=== PATIENT | female | born 1990 | race African-American/Black ===

== ENCOUNTER 2016-08-21 04:34 | Emergency (ER) | payer MEDICAID ==
[~2016-08-21] VITALS: Ht 167.6 cm; Wt 100.0 kg
[2016-08-21] MEDS ORDERED: ALBUTEROL (0.083%) 2.5MG/3ML NEB HHN STA (04:38)
[2016-08-21] MEDS ORDERED: IPRATROPIUM BROMIDE (0.02%) 0.5MG/2.5ML NEB HHN STA (04:38)
[2016-08-21] MEDS ORDERED: LORAZEPAM 2MG/ML CPJ IV ONE (04:45)
[2016-08-21 06:32] VITALS: BP 125/65
== END 2016-08-21 06:33 | disposition home or self-care (01) ==
LOC: ER 04:34
DX: J98.01 Acute bronchospasm (principal); J06.9 Acute upper respiratory infection, unspecified; F41.9 Anxiety disorder, unspecified; Z88.1 Allergy status to other antibiotic agents; Z88.2 Allergy status to sulfonamides
CPT/HCPCS: 71010; 94640; 96374; 99284; J2060; J7611; Z7610

== ENCOUNTER 2016-11-15 20:42 | Emergency (ER) | payer MEDICAID | END 2016-11-15 22:44 | disposition left against medical advice (07) | LOC: ER 22:14 | DX: R10.9 Unspecified abdominal pain (principal); Z53.21 Procedure and treatment not carried out due to patient leaving prior to being seen by health care provider ==

== ENCOUNTER 2016-11-15 22:44 | Emergency (ER) | payer MEDICAID ==
[~2016-11-15] VITALS: Ht 175.3 cm; Wt 125.0 kg
[2016-11-16 00:51] LABS: CLARITY URINE CLOUDY (CLEAR); COLOR URINE DARK YELLOW (YELLOW); GLUCOSE URINE NEGATIVE (NEGATIVE); KETONES URINE NEGATIVE (NEGATIVE); LEUKOCYTE ESTERASE URINE 1+ (NEGATIVE); NITRITE URINE NEGATIVE (NEGATIVE); OCCULT BLOOD URINE NEGATIVE (NEGATIVE); PROTEIN URINE NEGATIVE (NEGATIVE); SPECIFIC GRAVITY URINE 1.032 (1.005-1.030)
[2016-11-16 00:59] LABS: BASOPHILS % 0.4 % (0.0-2.0); EOSINOPHILS % 1.3 % (0.0-5.0); HEMATOCRIT. 33.2 % (36.0-48.0); HEMOGLOBIN. 10.5 g/dL (12.0-16.0); LYMPHOCYTES % 25.8 % (20.0-50.0); MEAN CORPUSCULAR HEMOGLOBIN 24.5 pg (28.0-32.0); MEAN CORPUSCULAR VOLUME 77.7 fL (81.0-99.0); MEAN PLATELET VOLUME 8.1 fl (7.4-10.4); MONOCYTES % 5.6 % (2.0-8.0); NEUTROPHILS % 66.9 % (40.0-76.0); PLATELET 312 x1000/uL (130-400); RED BLOOD CELL COUNT 4.27 mill/uL (4.2-5.4); RED CELL DISTRIBUTION WIDTH 15.3 % (11.6-14.6)
[2016-11-16] MEDS ORDERED: LIDOCAINE HCL 1% 20ML VIAL (Pyxis) INJ INFIL NR (03:45)
[2016-11-16] MEDS ORDERED: CEFTRIAXONE SODIUM 250 MG/VIAL IM NR (03:45)
[2016-11-16] MEDS ORDERED: AZITHROMYCIN 500 MG TABLET PO NR (04:45)
[2016-11-16 05:18] VITALS: BP 132/88
== END 2016-11-16 05:44 | disposition home or self-care (01) ==
LOC: ER 23:57
DX: N39.0 Urinary tract infection, site not specified (principal); N89.8 Other specified noninflammatory disorders of vagina; N83.00 Follicular cyst of ovary, unspecified side; Z88.2 Allergy status to sulfonamides; Z88.1 Allergy status to other antibiotic agents
CPT/HCPCS: 36415; 76830; 76856; 81001; 81025; 85025; 87210; 96372; 99285; J0696; J3490

== ENCOUNTER 2018-06-24 23:13 | Emergency (ER) | payer MEDICARE ==
[~2018-06-24] VITALS: Ht 172.7 cm; Wt 124.2 kg
[2018-06-25] MEDS ORDERED: ACETAMINOPHEN 325MG TABLET PO ONE (04:00)
[2018-06-25 04:05] LABS: CLARITY URINE CLEAR (CLEAR); COLOR URINE YELLOW (YELLOW); KETONES URINE TRACE (NEGATIVE); LEUKOCYTE ESTERASE URINE NEGATIVE (NEGATIVE); NITRITE URINE NEGATIVE (NEGATIVE); OCCULT BLOOD URINE NEGATIVE (NEGATIVE); PROTEIN URINE NEGATIVE (NEGATIVE); SPECIFIC GRAVITY URINE 1.039 (1.005-1.030)
[2018-06-25 04:08] LABS: BASOPHILS % 0.3 % (0.0-2.0); EOSINOPHILS % 2.1 % (0.0-5.0); HEMATOCRIT. 31.4 % (36.0-48.0); HEMOGLOBIN. 9.9 g/dL (12.0-16.0); LYMPHOCYTES % 26.8 % (20.0-50.0); MEAN CORPUSCULAR HEMOGLOBIN 24.7 pg (28.0-32.0); MEAN PLATELET VOLUME 8.1 fl (7.4-10.4); MONOCYTES % 5.3 % (2.0-8.0); NEUTROPHILS % 65.5 % (40.0-76.0); PLATELET 328 x1000/uL (130-400); RED BLOOD CELL COUNT 4.03 mill/uL (4.2-5.4); RED CELL DISTRIBUTION WIDTH 16.1 % (11.6-14.6)
[2018-06-25 04:09] LABS: PROTHROMBIN TIME 10.2 sec (9.1-11.1)
[2018-06-25 04:11] LABS: CHLORIDE 109 mEq/L (98-107)
[2018-06-25 04:24] LABS: B-HCG QUANTITATIVE < 1 mIU/mL (<3)
[2018-06-25 05:58] VITALS: BP 116/65
== END 2018-06-25 06:12 | disposition home or self-care (01) ==
LOC: ER 23:13
DX: R10.30 Lower abdominal pain, unspecified (principal); Z88.2 Allergy status to sulfonamides
CPT/HCPCS: 36415; 76830; 76856; 81025; 84702; 86850; 86900; 99284

== ENCOUNTER 2018-07-14 16:28 | Emergency (ER) | payer MEDICARE ==
[~2018-07-14] VITALS: Ht 175.3 cm; Wt 118.0 kg
[2018-07-14] MEDS ORDERED: SODIUM CHLORIDE 0.9% 1,000 ML IV ONE (23:31)
[2018-07-15 00:07] LABS: BASOPHILS % 0.2 % (0.0-2.0); CLARITY URINE TURBID (CLEAR); EOSINOPHILS % 2.8 % (0.0-5.0); HEMATOCRIT. 30.5 % (36.0-48.0); HEMOGLOBIN. 9.7 g/dL (12.0-16.0); KETONES URINE TRACE (NEGATIVE); LEUKOCYTE ESTERASE URINE 1+ (NEGATIVE); MEAN CORPUSCULAR HEMOGLOBIN 24.7 pg (28.0-32.0); MEAN CORPUSCULAR VOLUME 77.6 fL (81.0-99.0); NITRITE URINE NEGATIVE (NEGATIVE); OCCULT BLOOD URINE 3+ (NEGATIVE); PH URINE 5.5 (4.5-8.0); PLATELET 383 x1000/uL (130-400); PROTEIN URINE 2+ (NEGATIVE); RED BLOOD CELL COUNT 3.92 mill/uL (4.2-5.4); RED CELL DISTRIBUTION WIDTH 15.4 % (11.6-14.6); SPECIFIC GRAVITY URINE 1.036 (1.005-1.030)
[2018-07-15 00:08] LABS: COLOR URINE BROWN (YELLOW)
[2018-07-15 00:12] LABS: CHLORIDE 108 mEq/L (98-107)
[2018-07-15 00:13] LABS: HCG SCREEN NEGATIVE
[2018-07-15] MEDS ORDERED: HYDROCODONE/ACETAMINOPHEN 5/325MG TABLET PO NR (01:30)
[2018-07-15 03:16] VITALS: BP 120/79
== END 2018-07-15 03:26 | disposition home or self-care (01) ==
LOC: ER 16:28
DX: N93.9 Abnormal uterine and vaginal bleeding, unspecified (principal); D64.9 Anemia, unspecified; Z90.49 Acquired absence of other specified parts of digestive tract; F17.210 Nicotine dependence, cigarettes, uncomplicated; Z88.3 Allergy status to other anti-infective agents; Z88.2 Allergy status to sulfonamides; Z98.890 Other specified postprocedural states
CPT/HCPCS: 36415; 80048; 81003; 84703; 85025; 99283; J7030

== ENCOUNTER 2019-02-17 06:02 | Emergency (ER) | payer MEDICARE ==
[~2019-02-17] VITALS: Ht 172.7 cm; Wt 126.5 kg
[2019-02-17] MEDS ORDERED: MORPHINE SULFATE 4 MG/ML CPJ (NOT FOR IM USE) IV ONE (07:00)
[2019-02-17 08:18] LABS: CHLORIDE 110 mEq/L (98-107)
[2019-02-17 08:29] LABS: B-HCG QUANTITATIVE < 1 mIU/mL (<3)
[2019-02-17 08:34] LABS: BASOPHILS % 0.2 % (0.0-2.0); EOSINOPHILS % 1.4 % (0.0-5.0); HEMATOCRIT. 32.2 % (36.0-48.0); HEMOGLOBIN. 10.3 g/dL (12.0-16.0); LYMPHOCYTES % 16.7 % (20.0-50.0); MEAN CORPUSCULAR HEMOGLOBIN 23.2 pg (28.0-32.0); MEAN CORPUSCULAR VOLUME 72.6 fL (81.0-99.0); MEAN PLATELET VOLUME 7.9 fl (7.4-10.4); MONOCYTES % 5.4 % (2.0-8.0); NEUTROPHILS % 76.3 % (40.0-76.0); PLATELET 340 x1000/uL (130-400); RED BLOOD CELL COUNT 4.44 mill/uL (4.2-5.4); RED CELL DISTRIBUTION WIDTH 18.6 % (11.6-14.6)
[2019-02-17 09:04] LABS: CLARITY URINE CLOUDY (CLEAR); COLOR URINE YELLOW (YELLOW); KETONES URINE TRACE (NEGATIVE); LEUKOCYTE ESTERASE URINE 2+ (NEGATIVE); NITRITE URINE NEGATIVE (NEGATIVE); OCCULT BLOOD URINE TRACE (NEGATIVE); PH URINE 5.5 (4.5-8.0); PROTEIN URINE 1+ (NEGATIVE); SPECIFIC GRAVITY URINE 1.031 (1.005-1.030)
[2019-02-17] MEDS ORDERED: KETOROLAC 30MG/ML VIAL IV ONE (09:30)
[2019-02-17] MEDS ORDERED: AZITHROMYCIN 500 MG TABLET PO ONE (09:45)
[2019-02-17] MEDS ORDERED: CEFTRIAXONE SODIUM 250 MG/VIAL IM ONE (09:45)
[2019-02-17] MEDS ORDERED: ACETAMINOPHEN 325MG TABLET PO ONE (11:45)
[2019-02-17 12:22] VITALS: BP 130/80
[2019-02-19 07:12] LABS: CHLAMYDIA TRACHOMATIS NAA Negative (Negative); NEISSERIA GONORRHOEAE NAA Negative (Negative)
== END 2019-02-17 12:27 | disposition home or self-care (01) ==
LOC: ER 06:02
DX: N39.0 Urinary tract infection, site not specified (principal); R10.2 Pelvic and perineal pain; F17.210 Nicotine dependence, cigarettes, uncomplicated; Z90.49 Acquired absence of other specified parts of digestive tract; Z88.2 Allergy status to sulfonamides; Z88.3 Allergy status to other anti-infective agents
CPT/HCPCS: 36415; 74176; 76830; 76856; 80053; 81003; 81025; 84702; 85025; 86850; 86900; 86901; 87086; 87210; 87491; 87591; 96372; 96374; 96375; 99284; J0696; J1885; J2270

== ENCOUNTER 2019-06-16 23:12 | Emergency (ER) | payer MEDICARE ==
[~2019-06-16] VITALS: Ht 175.3 cm; Wt 127.0 kg
[2019-06-17 00:13] VITALS: BP 133/74
[2019-06-17 03:35] LABS: BASOPHILS % 0.8 % (0.0-2.0); EOSINOPHILS % 1.7 % (0.0-5.0); HEMATOCRIT. 33.9 % (36.0-48.0); HEMOGLOBIN. 10.8 g/dL (12.0-16.0); MEAN CORPUSCULAR HEMOGLOBIN 23.8 pg (28.0-32.0); MEAN CORPUSCULAR VOLUME 74.8 fL (81.0-99.0); MEAN PLATELET VOLUME 7.9 fl (7.4-10.4); MONOCYTES % 5.3 % (2.0-8.0); NEUTROPHILS % 63.2 % (40.0-76.0); PLATELET 341 x1000/uL (130-400); RED BLOOD CELL COUNT 4.54 mill/uL (4.2-5.4); RED CELL DISTRIBUTION WIDTH 17.6 % (11.6-14.6)
[2019-06-17 03:40] LABS: CHLORIDE 106 mEq/L (98-107)
[2019-06-17 03:44] LABS: CLARITY URINE CLOUDY (CLEAR); COLOR URINE YELLOW (YELLOW); KETONES URINE TRACE (NEGATIVE); LEUKOCYTE ESTERASE URINE 1+ (NEGATIVE); NITRITE URINE NEGATIVE (NEGATIVE); OCCULT BLOOD URINE NEGATIVE (NEGATIVE); PH URINE 5.5 (4.5-8.0); PROTEIN URINE NEGATIVE (NEGATIVE); SPECIFIC GRAVITY URINE 1.035 (1.005-1.030); UROBILINOGEN URINE 0.2 E.U./dL (0.2-1.0)
[2019-06-17 04:40] LABS: B-HCG QUANTITATIVE 8062 mIU/mL (<3)
== END 2019-06-17 05:24 | disposition home or self-care (01) ==
LOC: ER 23:12
DX: O20.0 Threatened abortion (principal); O23.31 Infections of other parts of urinary tract in pregnancy, first trimester; Z3A.01 Less than 8 weeks gestation of pregnancy; F17.290 Nicotine dependence, other tobacco product, uncomplicated; Z88.2 Allergy status to sulfonamides
CPT/HCPCS: 36415; 76830; 76856; 80053; 81003; 81025; 84702; 85025; 99284

== ENCOUNTER 2019-09-09 13:01 | Emergency (ER) | payer SELFPAY ==
[~2019-09-09] VITALS: Ht 160 cm; Wt 127.7 kg
[2019-09-09] MEDS ORDERED: SODIUM CHLORIDE 0.9% 1,000 ML IV ONE (14:21)
[2019-09-09] MEDS ORDERED: ONDANSETRON HCL 4MG/2ML INJ IV ONE (14:30)
[2019-09-09 15:10] LABS: BASOPHILS % 0.4 % (0.0-2.0); EOSINOPHILS % 0.6 % (0.0-5.0); HEMATOCRIT. 36.5 % (36.0-48.0); HEMOGLOBIN. 11.9 g/dL (12.0-16.0); LYMPHOCYTES % 17.1 % (20.0-50.0); MEAN CORPUSCULAR HEMOGLOBIN 25.1 pg (28.0-32.0); MEAN CORPUSCULAR VOLUME 77.2 fL (81.0-99.0); MONOCYTES % 3.7 % (2.0-8.0); NEUTROPHILS % 78.2 % (40.0-76.0); PLATELET 325 x1000/uL (130-400); RED BLOOD CELL COUNT 4.72 mill/uL (4.2-5.4); RED CELL DISTRIBUTION WIDTH 17.5 % (11.6-14.6)
[2019-09-09 15:17] LABS: CHLORIDE 106 mEq/L (98-107)
[2019-09-09 15:41] LABS: B-HCG QUANTITATIVE 2370 mIU/mL (<3)
[2019-09-09 17:53] LABS: CLARITY URINE CLOUDY (CLEAR); COLOR URINE DK YELLOW (YELLOW); KETONES URINE NEGATIVE (NEGATIVE); LEUKOCYTE ESTERASE URINE 3+ (NEGATIVE); NITRITE URINE NEGATIVE (NEGATIVE); OCCULT BLOOD URINE 2+ (NEGATIVE); PROTEIN URINE NEGATIVE (NEGATIVE)
[2019-09-09] MEDS ORDERED: CEFTRIAXONE 1 G PREMIX 50 ML IV ONE (19:00)
[2019-09-09] MEDS ORDERED: METOCLOPRAMIDE HCL 10MG/2ML VIAL IV ONE (19:00)
[2019-09-09 19:35] VITALS: BP 118/72
== END 2019-09-09 20:33 | disposition home or self-care (01) ==
LOC: ER 13:01
DX: O20.0 Threatened abortion (principal); O23.41 Unspecified infection of urinary tract in pregnancy, first trimester; F17.290 Nicotine dependence, other tobacco product, uncomplicated; Z88.2 Allergy status to sulfonamides; Z88.1 Allergy status to other antibiotic agents; Z90.49 Acquired absence of other specified parts of digestive tract; Z3A.01 Less than 8 weeks gestation of pregnancy
CPT/HCPCS: 36415; 76801; 76817; 80053; 81003; 81025; 84702; 85025; 86850; 86900; 86901; 96365; 96375; 99284; 99406; J0696; J2405; J2765; J7030

== ENCOUNTER 2020-04-23 13:54 | Emergency (ER) | payer MEDICAID ==
[~2020-04-23] VITALS: Ht 175.3 cm; Wt 123.0 kg
[2020-04-23] MEDS ORDERED: FAMOTIDINE 20MG/2ML VIAL IV STA (14:45)
[2020-04-23] MEDS ORDERED: METOCLOPRAMIDE HCL 10MG/2ML VIAL IV STA (14:45)
[2020-04-23] MEDS ORDERED: SODIUM CHLORIDE 0.9% 1,000 ML IV ONE (14:45)
[2020-04-23 15:33] LABS: CLARITY URINE CLOUDY (CLEAR); COLOR URINE DARK YELLOW (YELLOW); KETONES URINE 3+ (NEGATIVE); LEUKOCYTE ESTERASE URINE 2+ (NEGATIVE); NITRITE URINE NEGATIVE (NEGATIVE); OCCULT BLOOD URINE NEGATIVE (NEGATIVE); PH URINE 6.5 (4.5-8.0); PROTEIN URINE 1+ (NEGATIVE)
[2020-04-23 15:36] LABS: BASOPHILS % 0.3 % (0.0-2.0); EOSINOPHILS % 0.8 % (0.0-5.0); HEMATOCRIT. 34.6 % (36.0-48.0); HEMOGLOBIN. 10.9 g/dL (12.0-16.0); LYMPHOCYTES % 21.2 % (20.0-50.0); MEAN CORPUSCULAR HEMOGLOBIN 23.9 pg (28.0-32.0); MEAN CORPUSCULAR VOLUME 75.8 fL (81.0-99.0); MEAN PLATELET VOLUME 8.2 fl (7.4-10.4); MONOCYTES % 5.6 % (2.0-8.0); NEUTROPHILS % 72.1 % (40.0-76.0); PLATELET 396 x1000/uL (130-400); RED BLOOD CELL COUNT 4.57 mill/uL (4.2-5.4); RED CELL DISTRIBUTION WIDTH 15.7 % (11.6-14.6)
[2020-04-23 15:37] LABS: CHLORIDE 107 mEq/L (98-107)
[2020-04-23 15:40] LABS: HCG SCREEN NEGATIVE
[2020-04-23] MEDS ORDERED: CEPHALEXIN 250MG CAPSULE PO ONE (16:00)
[2020-04-23 17:30] VITALS: BP 122/78
== END 2020-04-23 17:41 | disposition home or self-care (01) ==
LOC: ER 13:54
DX: B34.9 Viral infection, unspecified (principal); D64.9 Anemia, unspecified; N39.0 Urinary tract infection, site not specified; F17.290 Nicotine dependence, other tobacco product, uncomplicated; Z90.49 Acquired absence of other specified parts of digestive tract; Z88.2 Allergy status to sulfonamides; Z88.1 Allergy status to other antibiotic agents
CPT/HCPCS: 36415; 71045; 80053; 81003; 81025; 83690; 84703; 85025; 87086; 87635; 96361; 96374; 96375; 99285; 99406; C9803; J2765; J3490; J7030; Z7610

== ENCOUNTER 2020-09-26 12:15 | Emergency (ER) | payer MEDICAID ==
[~2020-09-26] VITALS: Ht 175.3 cm; Wt 118.0 kg
[2020-09-26] MEDS ORDERED: MORPHINE SULFATE 10 MG/ML CPJ IV ONE (14:00)
[2020-09-26] MEDS ORDERED: MORPHINE SULFATE 4 MG/ML CPJ (NOT FOR IM USE) IV PRN (14:00)
[2020-09-26 14:17] LABS: BASOPHILS % 0.6 % (0.0-2.0); EOSINOPHILS % 1.7 % (0.0-5.0); HEMATOCRIT. 33.9 % (36.0-48.0); HEMOGLOBIN. 10.7 g/dL (12.0-16.0); LYMPHOCYTES % 19.3 % (20.0-50.0); MEAN CORPUSCULAR HEMOGLOBIN 24.4 pg (28.0-32.0); MEAN CORPUSCULAR VOLUME 77.1 fL (81.0-99.0); MONOCYTES % 4.5 % (2.0-8.0); NEUTROPHILS % 73.9 % (40.0-76.0); PLATELET 355 x1000/uL (130-400); RED BLOOD CELL COUNT 4.39 mill/uL (4.2-5.4); RED CELL DISTRIBUTION WIDTH 15.4 % (11.6-14.6)
[2020-09-26 14:28] LABS: CHLORIDE 108 mEq/L (98-107)
[2020-09-26 14:39] LABS: CLARITY URINE CLEAR (CLEAR); COLOR URINE YELLOW (YELLOW); KETONES URINE NEGATIVE (NEGATIVE); LEUKOCYTE ESTERASE URINE 3+ (NEGATIVE); NITRITE URINE NEGATIVE (NEGATIVE); OCCULT BLOOD URINE NEGATIVE (NEGATIVE); PH URINE 6.5 (4.5-8.0); PROTEIN URINE NEGATIVE (NEGATIVE); SPECIFIC GRAVITY URINE 1.017 (1.005-1.030)
[2020-09-26 14:48] LABS: HCG SCREEN NEGATIVE
[2020-09-26 19:27] VITALS: BP 130/91
== END 2020-09-26 19:28 | disposition home or self-care (01) ==
LOC: ER 12:22
DX: R10.2 Pelvic and perineal pain (principal); N83.202 Unspecified ovarian cyst, left side; F41.9 Anxiety disorder, unspecified; R82.81 Pyuria; F12.10 Cannabis abuse, uncomplicated; Z90.49 Acquired absence of other specified parts of digestive tract; Z88.2 Allergy status to sulfonamides
CPT/HCPCS: 36415; 76830; 76856; 80048; 81003; 84703; 85025; 87086; 93005; 96374; 96376; 99285; J2270

== ENCOUNTER 2021-04-11 15:36 | Emergency (ER) | payer MEDICAID ==
[~2021-04-11] VITALS: Ht 175.3 cm; Wt 118.0 kg
[2021-04-11 16:07] VITALS: BP 141/81
[2021-04-11] MEDS ORDERED: ACETAMINOPHEN WITH CODEINE 300/30MG TABLET PO STA (17:02)
== END 2021-04-11 18:18 | disposition left against medical advice (07) ==
LOC: ER 15:36
DX: N93.8 Other specified abnormal uterine and vaginal bleeding (principal); F12.10 Cannabis abuse, uncomplicated; Z90.49 Acquired absence of other specified parts of digestive tract; Z97.5 Presence of (intrauterine) contraceptive device; Z88.2 Allergy status to sulfonamides; Z88.1 Allergy status to other antibiotic agents
CPT/HCPCS: 99281

== ENCOUNTER 2021-06-21 09:15 | Emergency (ER) | payer MEDICAID ==
[~2021-06-21] VITALS: Ht 175.3 cm; Wt 117.0 kg
[2021-06-21] MEDS ORDERED: IPRATROPIUM BROMIDE (0.02%) 0.5MG/2.5ML NEB HHN STA (16:10)
[2021-06-21] MEDS ORDERED: ALBUTEROL (0.083%) 2.5MG/3ML NEB HHN STA (16:10)
[2021-06-21] MEDS ORDERED: ONDANSETRON 4MG ODT PO ONE (16:15)
[2021-06-21 16:43] LABS: CHLORIDE 108 mEq/L (98-107)
[2021-06-21 16:45] LABS: BASOPHILS % 0.4 % (0.0-2.0); EOSINOPHILS % 0.8 % (0.0-5.0); HEMATOCRIT. 34.2 % (36.0-48.0); HEMOGLOBIN. 10.8 g/dL (12.0-16.0); LYMPHOCYTES % 29.9 % (20.0-50.0); MEAN CORPUSCULAR HEMOGLOBIN 23.1 pg (28.0-32.0); MEAN CORPUSCULAR VOLUME 72.9 fL (81.0-99.0); MEAN PLATELET VOLUME 8.2 fl (7.4-10.4); MONOCYTES % 6.9 % (2.0-8.0); PLATELET 342 x1000/uL (130-400); RED BLOOD CELL COUNT 4.69 mill/uL (4.2-5.4); RED CELL DISTRIBUTION WIDTH 17.2 % (11.6-14.6)
[2021-06-21 20:30] VITALS: BP 124/92
== END 2021-06-21 21:00 | disposition home or self-care (01) ==
LOC: ER 09:15
DX: U07.1 COVID-19 (principal); R06.02 Shortness of breath; Z88.2 Allergy status to sulfonamides
CPT/HCPCS: 36415; 71045; 80053; 84484; 85025; 93005; 94640; 99285; C9803; Q0162; U0003; U0005; Z7610

== ENCOUNTER 2021-09-14 03:28 | Emergency (ER) | payer MEDICAID ==
[~2021-09-14] VITALS: Ht 172.7 cm; Wt 113.0 kg
[2021-09-14] MEDS ORDERED: ONDANSETRON HCL 4MG/2ML INJ IV STA (03:36)
[2021-09-14] MEDS ORDERED: SODIUM CHLORIDE 0.9% 1,000 ML IV ONE (03:45)
[2021-09-14 04:10] LABS: BASOPHILS % 0.6 % (0.0-2.0); HEMATOCRIT. 36.4 % (36.0-48.0); HEMOGLOBIN. 11.6 g/dL (12.0-16.0); LYMPHOCYTES % 12.7 % (20.0-50.0); MEAN CORPUSCULAR HEMOGLOBIN 24.1 pg (28.0-32.0); MEAN CORPUSCULAR VOLUME 75.5 fL (81.0-99.0); MEAN PLATELET VOLUME 8.2 fl (7.4-10.4); MONOCYTES % 5.2 % (2.0-8.0); NEUTROPHILS % 80.5 % (40.0-76.0); PLATELET 425 x1000/uL (130-400); RED BLOOD CELL COUNT 4.82 mill/uL (4.2-5.4); RED CELL DISTRIBUTION WIDTH 17.4 % (11.6-14.6)
[2021-09-14 04:17] LABS: CHLORIDE 106 mEq/L (98-107)
[2021-09-14] MEDS ORDERED: POTASSIUM CHLORIDE 20MEQ TABLET SR PO ONE (04:45)
[2021-09-14] MEDS ORDERED: VISCOUS LIDOCAINE 2% 15 ML UDC MM PRN (05:00)
[2021-09-14] MEDS ORDERED: FAMOTIDINE 20MG TABLET PO ONE (05:00)
[2021-09-14] MEDS ORDERED: MAGNESIUM/ALUMINUM HYDROXIDE/SIMETHICONE 30ML UDC PO ONE (05:00)
[2021-09-14] MEDS ORDERED: FAMO-135 MT (06:04)
[2021-09-14] MEDS ORDERED: MAG355OR21 MT (06:04)
[2021-09-14 08:24] VITALS: BP 126/80
[2021-09-14] MEDS ORDERED: KETOROLAC 15MG/ML VIAL IV ONE (08:30)
== END 2021-09-14 08:49 | disposition home or self-care (01) ==
LOC: ER 03:35
DX: R10.9 Unspecified abdominal pain (principal); F43.10 Post-traumatic stress disorder, unspecified; F41.9 Anxiety disorder, unspecified; Z88.2 Allergy status to sulfonamides; Z90.49 Acquired absence of other specified parts of digestive tract
CPT/HCPCS: 36415; 71045; 80053; 83690; 85025; 96361; 96374; 96375; 99284; J1885; J2405; J7030; Z7610

== ENCOUNTER 2021-12-27 19:17 | Emergency (ER) | payer MEDICAID ==
[~2021-12-27] VITALS: Ht 172.7 cm; Wt 103.6 kg
[~2021-12-27 19:17] MED LIST: FAMO-135 MT; MAG355OR21 MT
[2021-12-27] MEDS ORDERED: KETOROLAC 60MG/2ML VIAL IM ONE (22:45)
[2021-12-27] MEDS ORDERED: ONDANSETRON 4MG ODT PO ONE (22:45)
[2021-12-27] MEDS ORDERED: ACETAMINOPHEN 325MG TABLET PO ONE (22:45)
[2021-12-27] MEDS ORDERED: FAMOTIDINE 20MG TABLET PO ONE (22:45)
[2021-12-27] MEDS ORDERED: VISCOUS LIDOCAINE 2% 15 ML UDC MM STA (22:59)
[2021-12-27] MEDS ORDERED: MAGNESIUM/ALUMINUM HYDROXIDE/SIMETHICONE 30ML UDC PO ONE (23:00)
[2021-12-27 23:40] LABS: BASOPHILS % 0.7 % (0.0-2.0); EOSINOPHILS % 1.8 % (0.0-5.0); HEMATOCRIT. 35.2 % (36.0-48.0); HEMOGLOBIN. 11.3 g/dL (12.0-16.0); LYMPHOCYTES % 35.8 % (20.0-50.0); MEAN CORPUSCULAR HEMOGLOBIN 24.6 pg (28.0-32.0); MEAN PLATELET VOLUME 8.2 fl (7.4-10.4); MONOCYTES % 4.5 % (2.0-8.0); NEUTROPHILS % 57.2 % (40.0-76.0); PLATELET 376 x1000/uL (130-400); RED BLOOD CELL COUNT 4.58 mill/uL (4.2-5.4); RED CELL DISTRIBUTION WIDTH 17.8 % (11.6-14.6)
[2021-12-27 23:45] LABS: CHLORIDE 106 mEq/L (98-107)
[2021-12-27] MEDS ORDERED: HALOPERIDOL LACTATE 5MG/ML VIAL IM ONE (23:45)
[2021-12-28 00:10] LABS: HCG SCREEN NEGATIVE
[2021-12-28] MEDS ORDERED: POTASSIUM CHLORIDE 20MEQ TABLET SR PO ONE (00:15)
[2021-12-28 00:36] LABS: CLARITY URINE CLOUDY (CLEAR); COLOR URINE DARK YELLOW (YELLOW); KETONES URINE NEGATIVE (NEGATIVE); LEUKOCYTE ESTERASE URINE 1+ (NEGATIVE); NITRITE URINE NEGATIVE (NEGATIVE); OCCULT BLOOD URINE 3+ (NEGATIVE); PH URINE 7.5 (4.5-8.0); PROTEIN URINE 1+ (NEGATIVE); SPECIFIC GRAVITY URINE 1.024 (1.005-1.030)
[2021-12-28 01:11] LABS: *AMPHETAMINES SCREEN URINE NEGATIVE (NEGATIVE); *BARBITURATES SCREEN URINE NEGATIVE (NEGATIVE); *BENZODIAZEPINES SCREEN URINE NEGATIVE (NEGATIVE); *COCAINE SCREEN URINE NEGATIVE (NEGATIVE); METHADONE URINE SCREEN NEGATIVE (NEGATIVE); OPIATES URINE SCREEN NEGATIVE (NEGATIVE); PHENCYCLIDINE URINE SCREEN NEGATIVE (NEGATIVE)
[2021-12-28 01:14] LABS: CANNABINOID URINE SCREEN PRESUMTIVE POSITIVE (NEGATIVE)
[2021-12-28] MEDS ORDERED: MAG-55 MT (02:24)
[2021-12-28] MEDS ORDERED: FAMO40TA70 MT (02:24)
[2021-12-28] MEDS ORDERED: LACT1CAP78 MT (02:24)
[2021-12-28] MEDS ORDERED: KETOROLAC 60MG/2ML VIAL IM ONE (04:30)
[2021-12-28 04:32] VITALS: BP 138/89
== END 2021-12-28 04:38 | disposition home or self-care (01) ==
LOC: ER 19:17
DX: R10.13 Epigastric pain (principal); R11.2 Nausea with vomiting, unspecified; K21.9 Gastro-esophageal reflux disease without esophagitis; K29.70 Gastritis, unspecified, without bleeding; F41.9 Anxiety disorder, unspecified; Z88.2 Allergy status to sulfonamides; Z88.8 Allergy status to other drugs, medicaments and biological substances; Z90.49 Acquired absence of other specified parts of digestive tract; Z87.891 Personal history of nicotine dependence; Z20.822 Contact with and (suspected) exposure to COVID-19
CPT/HCPCS: 36415; 71045; 74176; 80053; 80305; 81003; 83690; 84703; 85025; 87426; 93005; 96372; 99285; J1885; Q0162

== ENCOUNTER 2022-02-27 10:33 | Emergency (ER) | payer MEDICAID ==
[~2022-02-27] VITALS: Ht 172.7 cm; Wt 95.0 kg
[~2022-02-27 10:33] MED LIST changes: +FAMO40TA70 MT; +LACT1CAP78 MT; +MAG-55 MT
[2022-02-27] MEDS ORDERED: DEXAMETHASONE 4MG TABLET PO ONE (13:15)
[2022-02-27] MEDS ORDERED: METOCLOPRAMIDE HCL 10MG TABLET PO ONE (13:15)
[2022-02-27 13:22] LABS: BASOPHILS % 0.3 % (0.0-2.0); HEMATOCRIT. 32.3 % (36.0-48.0); HEMOGLOBIN. 10.4 g/dL (12.0-16.0); LYMPHOCYTES % 28.8 % (20.0-50.0); MEAN CORPUSCULAR HEMOGLOBIN 25.6 pg (28.0-32.0); MEAN CORPUSCULAR VOLUME 79.1 fL (81.0-99.0); MEAN PLATELET VOLUME 8.5 fl (7.4-10.4); MONOCYTES % 7.6 % (2.0-8.0); NEUTROPHILS % 59.3 % (40.0-76.0); PLATELET 311 x1000/uL (130-400); RED BLOOD CELL COUNT 4.08 mill/uL (4.2-5.4); RED CELL DISTRIBUTION WIDTH 16.1 % (11.6-14.6)
[2022-02-27 13:27] LABS: CHLORIDE 109 mEq/L (98-107)
[2022-02-27 13:44] VITALS: BP 110/72
[2022-02-27] MEDS ORDERED: METO-293 MT (15:29)
[2022-02-27] MEDS ORDERED: FAMO-287 MT (15:29)
== END 2022-02-27 17:07 | disposition home or self-care (01) ==
LOC: ER 10:33
DX: R11.2 Nausea with vomiting, unspecified (principal); Z77.120 Contact with and (suspected) exposure to mold (toxic); F17.210 Nicotine dependence, cigarettes, uncomplicated; F41.9 Anxiety disorder, unspecified; Z90.49 Acquired absence of other specified parts of digestive tract; Z88.2 Allergy status to sulfonamides; Z88.1 Allergy status to other antibiotic agents
CPT/HCPCS: 36415; 80048; 85025; 99283; J8540; J8597

== ENCOUNTER 2022-03-04 09:23 | Emergency (ER) | payer MEDICAID, OTHER ==
[~2022-03-04] VITALS: Ht 172.7 cm; Wt 89.0 kg
[~2022-03-04 09:23] MED LIST changes: +FAMO-287 MT; +METO-293 MT
[2022-03-04 12:30] LABS: BASOPHILS % 0.2 % (0.0-2.0); HEMATOCRIT. 32.8 % (36.0-48.0); HEMOGLOBIN. 10.6 g/dL (12.0-16.0); LYMPHOCYTES % 24.4 % (20.0-50.0); MEAN CORPUSCULAR HEMOGLOBIN 25.7 pg (28.0-32.0); MEAN PLATELET VOLUME 7.7 fl (7.4-10.4); MONOCYTES % 4.5 % (2.0-8.0); NEUTROPHILS % 69.9 % (40.0-76.0); PLATELET 380 x1000/uL (130-400); RED BLOOD CELL COUNT 4.15 mill/uL (4.2-5.4)
[2022-03-04] MEDS ORDERED: KETOROLAC 30MG/ML VIAL IM ONE (12:30)
[2022-03-04 12:40] LABS: CHLORIDE 108 mEq/L (98-107)
[2022-03-04 12:49] LABS: CLARITY URINE CLEAR (CLEAR); COLOR URINE DARK YELLOW (YELLOW); KETONES URINE NEGATIVE (NEGATIVE); LEUKOCYTE ESTERASE URINE NEGATIVE (NEGATIVE); NITRITE URINE NEGATIVE (NEGATIVE); OCCULT BLOOD URINE NEGATIVE (NEGATIVE); PH URINE >=9.0 (4.5-8.0); PROTEIN URINE 1+ (NEGATIVE); SPECIFIC GRAVITY URINE 1.021 (1.005-1.030)
[2022-03-04] MEDS ORDERED: P20 MT ×2 (13:30→13:32)
[2022-03-04 13:38] VITALS: BP 125/86
== END 2022-03-04 13:39 | disposition home or self-care (01) ==
LOC: ER 10:37
DX: R10.9 Unspecified abdominal pain (principal); R06.02 Shortness of breath; R11.2 Nausea with vomiting, unspecified; F41.9 Anxiety disorder, unspecified; Z88.2 Allergy status to sulfonamides; Z88.8 Allergy status to other drugs, medicaments and biological substances; Z90.49 Acquired absence of other specified parts of digestive tract
CPT/HCPCS: 36415; 71045; 80053; 81003; 81025; 83690; 85025; 96372; 99284; J1885

== ENCOUNTER 2022-03-07 11:38 | Emergency (ER) | payer MEDICAID, OTHER ==
[~2022-03-07] VITALS: Ht 170.2 cm; Wt 77.0 kg
[~2022-03-07 11:38] MED LIST changes: +P20 MT
[2022-03-07 11:43] VITALS: BP 142/78
[2022-03-07] MEDS ORDERED: LORAZEPAM 1MG TABLET PO ONE (16:00)
[2022-03-07] MEDS ORDERED: DEXAMETHASONE 4MG TABLET PO ONE (17:00)
[2022-03-07] MEDS ORDERED: DEXA4TAB MT ×3 (17:02→17:04)
[2022-03-07] MEDS ORDERED: LORAZEPAM 1MG TABLET PO SCH (17:45)
== END 2022-03-07 17:54 | disposition home or self-care (01) ==
LOC: ER 11:38
DX: F41.9 Anxiety disorder, unspecified (principal); R11.10 Vomiting, unspecified; F12.10 Cannabis abuse, uncomplicated; Z88.2 Allergy status to sulfonamides; Z90.49 Acquired absence of other specified parts of digestive tract; Z79.899 Other long term (current) drug therapy; Z98.890 Other specified postprocedural states
CPT/HCPCS: 81025; 93005; 99283; J8540

== ENCOUNTER 2022-03-09 10:52 | Emergency (ER) | payer MEDICAID ==
[~2022-03-09] VITALS: Ht 172.7 cm; Wt 91.0 kg
[~2022-03-09 10:52] MED LIST changes: +DEXA4TAB MT
[2022-03-09] MEDS ORDERED: MAGNESIUM/ALUMINUM HYDROXIDE/SIMETHICONE 30ML UDC PO STA (11:54)
[2022-03-09] MEDS ORDERED: DICYCLOMINE 10 MG/5 ML ORAL SYR PO STA (11:54)
[2022-03-09] MEDS ORDERED: VISCOUS LIDOCAINE 2% 15 ML UDC PO STA (11:54)
[2022-03-09] MEDS ORDERED: SUCRALFATE 1G TABLET PO STA (11:57)
[2022-03-09] MEDS ORDERED: KETOROLAC 60MG/2ML VIAL IM ONE (12:00)
[2022-03-09 12:07] LABS: BASOPHILS % 0.1 % (0.0-2.0); HEMATOCRIT. 31.2 % (36.0-48.0); HEMOGLOBIN. 9.8 g/dL (12.0-16.0); LYMPHOCYTES % 9.1 % (20.0-50.0); MEAN CORPUSCULAR HEMOGLOBIN 25.2 pg (28.0-32.0); MEAN CORPUSCULAR VOLUME 80.1 fL (81.0-99.0); MEAN PLATELET VOLUME 8.2 fl (7.4-10.4); MONOCYTES % 4.6 % (2.0-8.0); NEUTROPHILS % 86.2 % (40.0-76.0); PLATELET 412 x1000/uL (130-400); RED BLOOD CELL COUNT 3.89 mill/uL (4.2-5.4); RED CELL DISTRIBUTION WIDTH 16.2 % (11.6-14.6)
[2022-03-09 12:14] LABS: CHLORIDE 111 mEq/L (98-107)
[2022-03-09] MEDS ORDERED: DICYCLOMINE HCL 10MG CAPSULE PO NR (12:15)
[2022-03-09 12:17] LABS: PROTHROMBIN TIME 11.1 sec (9.6-11.0)
[2022-03-09 14:14] VITALS: BP 129/85
[2022-03-09 14:27] LABS: CLARITY URINE CLEAR (CLEAR); COLOR URINE DARK YELLOW (YELLOW); KETONES URINE TRACE (NEGATIVE); LEUKOCYTE ESTERASE URINE NEGATIVE (NEGATIVE); NITRITE URINE NEGATIVE (NEGATIVE); OCCULT BLOOD URINE NEGATIVE (NEGATIVE); PROTEIN URINE TRACE (NEGATIVE); SPECIFIC GRAVITY URINE 1.033 (1.005-1.030)
[2022-03-09 14:38] LABS: HCG SCREEN NEGATIVE
[2022-03-09] MEDS ORDERED: PROT20 MT (15:39)
[2022-03-09] MEDS ORDERED: SUCR1TAB MT (15:39)
== END 2022-03-09 16:42 | disposition home or self-care (01) ==
LOC: ER 10:52
DX: R10.13 Epigastric pain (principal); R11.10 Vomiting, unspecified; Z88.2 Allergy status to sulfonamides; Z88.8 Allergy status to other drugs, medicaments and biological substances; F41.9 Anxiety disorder, unspecified
CPT/HCPCS: 36415; 80053; 81003; 81025; 83690; 84703; 85025; 85610; 96372; 99284; J1885

== ENCOUNTER 2023-05-01 20:34 | Emergency (ER) | payer MEDICAID, OTHER ==
[~2023-05-01] VITALS: Ht 170.2 cm; Wt 113.0 kg
[~2023-05-01 20:34] MED LIST changes: +PROT20 MT; +SUCR1TAB MT
[2023-05-01 20:50] VITALS: O2SAT 100
[2023-05-01 21:24] LABS: BASOPHILS % 0.4 % (0.0-2.0); EOSINOPHILS % 1.1 % (0.0-5.0); HEMATOCRIT. 32.7 % (36.0-48.0); HEMOGLOBIN. 10.4 g/dL (12.0-16.0); MEAN CORPUSCULAR HEMOGLOBIN 26.1 pg (28.0-32.0); MEAN CORPUSCULAR VOLUME 81.5 fL (81.0-99.0); MEAN PLATELET VOLUME 8.4 fl (7.4-10.4); MONOCYTES % 9.1 % (2.0-8.0); NEUTROPHILS % 59.4 % (40.0-76.0); PLATELET 282 x1000/uL (130-400); RED BLOOD CELL COUNT 4.01 mill/uL (4.2-5.4); RED CELL DISTRIBUTION WIDTH 15.9 % (11.6-14.6); WHITE BLOOD COUNT 5.2 x1000/uL (4.5-11.0)
[2023-05-01 21:48] LABS: ALANINE AMINOTRANSFERASE 15 IU/L (10-49); ALBUMIN 4.2 g/dL (3.2-4.8); ASPARTATE AMINOTRANSFERASE 26 IU/L (<34); BILIRUBIN TOTAL 0.3 mg/dL (0.1-1.0); CALCIUM 8.9 mg/dL (8.7-10.4); CARBON DIOXIDE 24 mEq/L (21-32); CHLORIDE 111 mEq/L (98-107); CREATININE 0.8 mg/dL (0.6-1.0); GLUCOSE 69 mg/dL (70-105); POTASSIUM 3.3 mEq/L (3.5-5.1); PROTEIN TOTAL 6.4 g/dL (6.0-8.3); SODIUM 145 mEq/L (136-145); UREA NITROGEN BLOOD 9 mg/dL (9-23)
[2023-05-01 22:10] LABS: TROPONIN I HIGH SENSITIVITY < 4 ng/L (3.0-34)
[2023-05-01] MEDS ORDERED: FLUT9.9S16 BOTHNSTRLS (22:36)
[2023-05-01] MEDS ORDERED: P20 MT (22:36)
[2023-05-01] MEDS ORDERED: POTA-205 MT (22:36)
[2023-05-01 23:22] VITALS: BP 150/105; PULSE 95; RESP 18; TEMP 98
[2023-05-01 23:40] LABS: CLARITY URINE CLEAR (CLEAR); COLOR URINE YELLOW (YELLOW); GLUCOSE URINE NEGATIVE (NEGATIVE); KETONES URINE 1+ (NEGATIVE); LEUKOCYTE ESTERASE URINE NEGATIVE (NEGATIVE); NITRITE URINE NEGATIVE (NEGATIVE); OCCULT BLOOD URINE 3+ (NEGATIVE); PH URINE 5.5 (4.5-8.0); PROTEIN URINE TRACE (NEGATIVE); SPECIFIC GRAVITY URINE 1.027 (1.005-1.030); UROBILINOGEN URINE 0.2 E.U./dL (0.2-1.0)
[2023-05-01 23:43] LABS: BACTERIA URINE NONE SEEN; RBC URINE TNTC /hpf (0-2); SQUAMOUS EPITHELIAL CELL URINE 1+ /lpf (RARE/1+); YEAST URINE NONE SEEN
== END 2023-05-01 23:37 | disposition home or self-care (01) ==
LOC: ER 20:34
DX: B34.9 Viral infection, unspecified (principal); Z20.822 Contact with and (suspected) exposure to COVID-19; Z88.2 Allergy status to sulfonamides; Z79.899 Other long term (current) drug therapy; Z98.890 Other specified postprocedural states; Z90.49 Acquired absence of other specified parts of digestive tract
CPT/HCPCS: 99285; 71045; 87426; 80053; 81003; 81025; 85025; 84484; 87804 ×2; 36415; 93005; C9803

== ENCOUNTER 2023-08-21 08:46 | Emergency (ER) | payer OTHER ==
[~2023-08-21] VITALS: Ht 170.2 cm; Wt 113.4 kg
[~2023-08-21 08:46] MED LIST changes: +FLUT9.9S16 BOTHNSTRLS; +POTA-205 MT
[2023-08-21 08:51] VITALS: BP 161/94; PULSE 106; RESP 16; TEMP 98.1; O2SAT 98
[2023-08-21] MEDS: PENICILLIN G BENZATHINE 1,200,000 UNITS/2ML SYR IM ONE (09:17)
[2023-08-21] MEDS: DEXAMETHASONE 10 MG/ML VIAL IM ONE (09:18)
== END 2023-08-21 09:40 | disposition home or self-care (01) ==
LOC: ER 08:46
DX: J02.9 Acute pharyngitis, unspecified (principal); Z88.2 Allergy status to sulfonamides; Z79.899 Other long term (current) drug therapy; Z90.49 Acquired absence of other specified parts of digestive tract
CPT/HCPCS: 96372; 99284; J1100; J0561; Z7610

== ENCOUNTER 2025-04-09 03:29 | Emergency (ER) | payer MEDICAID, OTHER ==
[~2025-04-09] VITALS: Ht 172.7 cm; Wt 123.0 kg
[2025-04-09 03:38] VITALS: O2SAT 99
[2025-04-09] MEDS: LIDOCAINE 5% PATCH TOP SCH (05:03)
[2025-04-09] MEDS: KETOROLAC 30MG/ML VIAL IM ONE (05:04)
[2025-04-09] MEDS: DEXAMETHASONE 10 MG/ML VIAL PO ONE (05:04)
[2025-04-09] MEDS ORDERED: NAPR-1176 MT (05:46)
[2025-04-09] MEDS ORDERED: LIDO-53 TP (05:46)
[2025-04-09 05:55] VITALS: BP 140/91; PULSE 70; RESP 16; TEMP 37.2; O2SAT 98
== END 2025-04-09 05:56 | disposition home or self-care (01) ==
LOC: ER 03:29
DX: M25.552 Pain in left hip (principal); F41.9 Anxiety disorder, unspecified; K58.9 Irritable bowel syndrome, unspecified; Z79.899 Other long term (current) drug therapy; Z90.49 Acquired absence of other specified parts of digestive tract; Z88.1 Allergy status to other antibiotic agents; Z88.2 Allergy status to sulfonamides
CPT/HCPCS: 81025; 72192; 96372; 99285; J1100; J1885; Z7610